=== PATIENT | male | born 1985 | race Caucasian/White ===

== ENCOUNTER 2017-12-03 00:47 | Inpatient (IN) | payer OTHER ==
[~2017-12-03] VITALS: Ht 195.6 cm; Wt 115.7 kg
--- NOTE | ~2017-12-03 | O ---
[facility] [place] [address] OPERATIVE REPORT Name: RODADRIÁN Pastor Room #: 424-P [facility]..#: [id number] Admission: 12/03/17 Attend Phys: Shukri Mohan MD Discharge: 12/03/17 Date of : 81 Report #: [id number] THIS REPORT FOR: //name// CC: FAM unknown Shukri Del Real DATE OF SERVICE: 12/03/2017 SURGEON: Derik Del Real MD. SCALE AND SKIP CAR OPERATOR: None. PREOPERATIVE DIAGNOSIS: Acute appendicitis. POSTOPERATIVE DIAGNOSES: 1. Acute nonsuppurative, nonperforated appendicitis. 2. Incarcerated umbilical hernia. PROCEDURE: 1. Laparoscopic appendectomy. 2. Laparoscopic primary repair of incarcerated umbilical hernia. ANESTHESIA: General endotracheal anesthesia and local anesthetic. ESTIMATED BLOOD LOSS: 5 mL. SPECIMEN: Incarcerated hernia content and appendix. COMPLICATIONS: None appreciated. INDICATIONS FOR PROCEDURE: This is a 32-year-old male patient who was seen in the [place] [facility] with right lower quadrant abdominal pain radiating to his right lower back. He complains of a low-grade fever and chills as well as emesis. He was found to have leukocytosis. CT showed a dilated appendix with wall thickening and periappendiceal stranding, but no evidence for abscess or perforation. A fecalith was present. The patient had an exam consistent with this. The patient presents now for laparoscopic appendectomy. OPERATIVE FINDINGS: Upon entrance in the abdominal cavity, inflammation was seen in the right lower quadrant. The appendix itself was dilated and was able to be identified adjacent to an enlarged, inflamed veil of Kannan. The appendix itself was quite dilated and acutely involved with inflammation except for at the base where it was only mildly inflamed. After stapling off the appendix and dividing the blood supply with the ultrasonic dissection with good hemostasis, the staple line was secured and the abdominal cavity was hemostatic. [facility] [address] [place] [address] OPERATIVE REPORT Name: ADRIÁN VELASCO Pastor Room #: 424-P [facility]#: [id number] Admission: 12/03/17 Attend Phys: Shukri Mohan MD Discharge: 12/03/17 Date of : 81 Report #: [id number] While removing the appendix from the abdominal cavity, an omental bridge was seen extending up to the umbilicus. This was reduced and the abdominal wall skeletonized to allow for primary laparoscopic closure. No other significant pathology was seen. At the conclusion of the operation, the sponge, needle, and instrument counts were correct. DESCRIPTION OF PROCEDURE IN DETAIL: After the risks, benefits and expectations of the operation were discussed in detail with the patient, informed consent was obtained. The patient was identified in the preoperative holding area. He was given IV antibiotics on a scheduled basis prior to entering the operating room. The patient was placed in the supine position and he was given IV sedation. SCDs were placed on the patient's bilateral lower extremities and pneumatic compression was initiated. The patient was then given IV sedation and he was intubated without incident. His abdomen was prepped and draped in the standard sterile fashion. Timeout was performed to identify the correct patient and procedure. Local anesthetic was infiltrated into the skin and subcutaneous tissue supraumbilically where a curvilinear incision was made with a #15 blade scalpel. Dissection was carried down to the fascia. A small fascial rubens was made and a 12-mm Visiport was placed intraperitoneally with a 0-degree angled laparoscope. Pneumoperitoneum was achieved with insufflation of carbon dioxide to 15 mmHg. A 30-degree angled laparoscope was then inserted. The patient was placed in the Trendelenburg position. A suprapubic 5-mm and left lower quadrant 5-mm port were each placed under direct visualization after local anesthetic was infiltrated into the skin, subcutaneous tissue and appropriately sized incisions were made. Findings are as noted above. The patient was rotated to his left. The acute inflammatory change in the right lower quadrant was visualized. The inflamed veil of Kannan was used as a handle and the appendix was lateral to this. The appendix was dissected off of the anterior abdominal wall and from its surrounding tissue. There is no evidence for perforation or abscess. A window was then made in the mesoappendix adjacent to the base of the appendix. The endoscopic BENITO stapler was then advanced into the abdominal cavity and used to staple and divide the appendix at its base. The mesoappendix was then divided with the ultrasound dissector with good hemostasis. The appendix and mesoappendix were placed in an Endopouch and removed through the supraumbilical port site. While doing so, an omental bridge was seen extending to the anterior abdominal wall. This was reduced. The appendix was removed from the patient's abdominal cavity. Finger dissection was used to clear away the fascia to allow for closure. A [id number] 0 PDS suture was then placed with the Royer-Salima laparoscopic fascial closure device to close the fascial defect. The suture was tied under direct visualization to ensure no incorporation of intra-abdominal content. The 12-mm port site fascial opening was closed with a simple interrupted 0 PDS suture with the Royer-Salima laparoscopic fascial closure device with good closure. The [address] [address] OPERATIVE REPORT Name: ADRIÁN VELASCO Room #: 424-P [facility]#: [id number] Admission: 12/03/17 Attend Phys: Shukri Mohan MD Discharge: 12/03/17 Date of : 81 Report #: [id number] abdominal cavity was then desufflated and the ports were removed after ensuring that the staple line was secure. The patient tolerated the procedure well. He was awakened, extubated, and taken to recovery room in stable condition with no apparent intraoperative complications. <ELECTRONICALLY SIGNED> By: Derik Del Real MD, FACS 12/04/17 [phone] Derik Del Real MD, FACS /nt
--- NOTE | ~2017-12-03 | PATH ---
[facility] [address] [place] [address] PATHOLOGY RPT PROCEDURE Name: RODADRIÁN Pastor Room #: 424-P [facility] M.R.#: [id number] Admission: 12/03/17 Date of : 81 Discharge: 12/03/17 Report #: [id number] Path Case #: [id number] [facility] Accession Number: [id number] . 01 Material submitted: . PART A: APPENDIX PART B: INCARCERATED UMBILICAL HERNIA CONTENTS . 01 Clinical history: . Acute appendicitis . 02 Diagnosis: A. Appendix, appendectomy: - Marked transmural acute inflammation consistent with acute appendicitis, along with marked serositis. . B. Fibrovascular connective tissue, incarcerated umbilical hernia contents: - Congested tissue with mild chronic inflammation, compatible with a hernia sac. (IUV/db; 12/07/17) LBQ/12/07/2017 . 02 Electronically signed: . Kaleigh U Vadlamani, MD, Pathologist NPI- [id number] . 01 Gross description: . A. The specimen is received in formalin, labeled "Adrián Velasco, appendix" and consists of an enlarged and markedly congested appendix measuring 8.0 cm in length and ranging from 0.5 cm to 1.8 cm in diameter with mesoappendix (8.5 x 2.0 x 1.6 cm). The serosa is pink-purple, ragged and covered with thick fibrous adhesions. Sectioning reveals a markedly dilated lumen at the proximal margin containing dark red hemorrhagic material with a variegated pink-red to rothman-black possible mass measuring 3.3 x 1.6 cm. The possible mass extends from the proximal margin 3.5 cm and grossly appears to involve the wall but is contained within the mucosa. The specimen is entirely submitted sequentially as follows: . A1: Proximal margin A2: Segment after margin A3-A17: Mid appendix A18: Distal tip bisected . B. The specimen is received in formalin, labeled "Rod Adrián, incarcerated umbilical hernia contents" and consists of multiple segments of partially cauterized membranous tissue with attached adipose tissue [address] [address] PATHOLOGY RPT PROCEDURE Name: ADRIÁN VELASCO L Room #: 424-P [facility] M.R.#: [id number] Admission: 12/03/17 Date of : 81 Discharge: 12/03/17 Report #: [id number] Path Case #: [id number] measuring 4.5 x 4.0 x 0.8 cm. Sectioning reveals no masses or lesions. Waiter sections are submitted in B1. (SDY; 12/03/2017) SYU/SYU . 02 Pathologist provided ICD-10: K35.80, K42.9 . 02 CPT . 629182, [id number] Performed at: [address], [place], [place] [id number] MD Navdeep Parkinson MD Phone: [phone] Performed at: [address] [id number] MD Kaleigh Viera MD Phone: [phone]
[2017-12-03 01:05] VITALS: BP 150/98
[2017-12-03] MEDS ORDERED: FIBER-TABS625 MG PO (01:11)
[2017-12-03] MEDS ORDERED: UNICOMPLEX M TA1 TA1 PO (01:12)
[2017-12-03 01:31] LABS: URINE BILIRUBIN NEGATIVE (Negative); URINE BLOOD NEGATIVE (Negative); URINE CLARITY CLEAR; URINE COLOR YELLOW; URINE GLUCOSE-RANDOM* NEGATIVE (Negative); URINE KETONES 1+ (Negative); URINE LEUKOCYTES-REFLEX NEGATIVE (Negative); URINE NITRITE-REFLEX NEGATIVE (Negative); URINE PROTEIN (DIPSTICK) 1+ (Negative); URINE SPECIFIC GRAVITY >= 1.030 (1.005-1.035); URINE UROBILINOGEN 0.2 E.U./dl (0.2-1.0)
[2017-12-03 01:39] LABS: BACTERIA-REFLEX None Seen /HPF (None Seen); CASTS None Seen /LPF (None Seen); CRYSTALS None Seen /LPF (None Seen); MUCUS 4-6 Moderate strn/LPF (None Seen); SQUAMOUS None Seen /LPF (0-3); URINE RBC None Seen /HPF (0-2); URINE WBC-REFLEX None Seen /HPF (0-5)
[2017-12-03 01:43] LABS: ABSOLUTE NEUTROPHILS 16.5 thou/uL (1.4-8.2); BASOPHILS 0.2 % (0.0-2.0); EOSINOPHILS 0.1 % (0.0-3.0); HEMOGLOBIN 15.3 gm/dL (14.0-18.0); MCH 31.8 pg (26.0-34.0); MCHC 34.9 g/dL (28.0-37.0); MCV 91.2 fL (80.0-100.0); MONOCYTES 5.9 % (1.0-8.0); PLATELET COUNT 192 thou/uL (150-400); POLYS 84.8 % (36.0-66.0); RBC 4.83 mil/uL (4.50-6.00); WBC 19.5 thou/uL (4.0-11.0)
[2017-12-03 01:51] LABS: CALCIUM 9.2 mg/dL (8.5-10.1); CREATININE 0.8 mg/dL (0.7-1.3); POTASSIUM 5.2 mmol/L (3.5-5.1)
[2017-12-03 01:57] LABS: ALBUMIN 4.2 g/dL (3.4-5.0); TOTAL BILIRUBIN 1.8 mg/dL (<0.1-1.0)
[2017-12-03 08:46] VITALS: BP 127/65
[2017-12-03 10:00] VITALS: BP 126/83
[2017-12-03] MEDS ORDERED: SENNA-S TABLET1 EACH PO (11:39)
[2017-12-03] MEDS ORDERED: NORCO 5-325 TA1 EACH PO (11:39)
[2017-12-03 19:00] VITALS: BP 126/83
== END 2017-12-03 19:29 | disposition home or self-care (01) | DRG 854 ==
LOC: ER 00:47 → EROBS 04:20 → TBA 04:20 → 4E 15:37
PROVIDERS: Emergency Medicine
PROC: 0WQF4ZZ Repair Abdominal Wall, Percutaneous Endoscopic Approach (ICD-10-PCS; principal; 2017-12-03)
PROC: 0DTJ4ZZ Resection of Appendix, Percutaneous Endoscopic Approach (ICD-10-PCS; principal; 2017-12-03)
DX: A41.9 Sepsis, unspecified organism (principal); K35.80 Unspecified acute appendicitis; K42.0 Umbilical hernia with obstruction, without gangrene; F12.90 Cannabis use, unspecified, uncomplicated; Z79.899 Other long term (current) drug therapy
CPT/HCPCS: 10084; 50010; 50101; 50249; 50411; 50555; 50558; 50739; 50740; 50962; 51489; 51975; 52265; 53307; 54022; 54118; 56526; 56527; 62110; 62900; 70005